=== PATIENT | male | born 1980 | race Caucasian/White ===

== ENCOUNTER 2017-11-01 06:14 | Emergency (ER) | payer MEDICAID ==
[~2017-11-01] VITALS: Ht 167.6 cm; Wt 45.4 kg
[2017-11-01 06:14] VITALS: BP_SYST 122
--- NOTE | 2017-11-01 06:14 | NUR ---
Placed in room 07 . Placed on director of cardiac rehabilitation, blood pressure machine and pulse oximeter. To gown for exam. Side rails up. Report given to RADHA Peña.
--- NOTE | 2017-11-01 06:17 | NUR ---
Patient brought in to ED via ALS. Patient AAO x 4, Frisian speaking but understands basic Slovenian. Per paramedics, patient had seizures witnessed by family, unknown duration, patient consumed alcohol last night per family. Patient post-ictal on arrival. Pupils PERRL. No other deficits noted. Patient came in with #20G L forearm IV on SL. No SOB or acute distress noted. Patient VSS. Seizure precautions in place. Will continue to monitor.
--- NOTE | 2017-11-01 06:19 | NUR ---
ER Dr. Limon at bedside examining patient.
[2017-11-01] MEDS ORDERED: NACL 0.9% 1,000 ML IV ONE (06:42)
--- NOTE | 2017-11-01 07:07 | NUR ---
Ilene melendez in ED - 11/01/17 at 0713 by [email or web address] Received report from IVF bolus infuisng.
--- NOTE | 2017-11-01 07:07 | NUR ---
Received report from Markie.
[2017-11-01 07:09] LABS: BASOPHILS % (AUTO) 0.6 % (0.0-2.0); EOSINOPHILS % (AUTO) 0.4 % (0.0-4.0); HEMATOCRIT 37.4 % (36-54); HEMOGLOBIN 12.2 g/dL (14.0-18.0); LYMPHOCYTES # (AUTO) 0.5 K/uL (1.0-5.5); LYMPHOCYTES % (AUTO) 14.9 % (20.5-51.5); MEAN CORPUSCULAR HEMOGLOBIN 28 pg (27-31); MEAN CORPUSCULAR HGB CONC 33 % (32-36); MEAN CORPUSCULAR VOLUME 86 fL (79.0-98.0); MONOCYTES # (AUTO) 0.6 K/uL (0.0-1.0); MONOCYTES % (AUTO) 16.8 % (1.7-9.3); NEUTROPHILS # (AUTO) 2.4 K/uL (1.8-7.7); NEUTROPHILS % (AUTO) 67.3 % (40.0-70.0); PLATELET COUNT (AUTO) 299 K/uL (130-430); RED BLOOD CELL COUNT(AUTO) 4.37 MIL/uL (4.2-6.2); RED CELL DISTRIBUTION WIDTH 14.7 % (9.0-15.0)
[2017-11-01 07:11] LABS: WHITE BLOOD COUNT (AUTO) 3.5 K/uL (4.8-10.8)
[2017-11-01 07:14] LABS: CALCIUM 9.4 mg/dL (8.4-11.0); CREATININE 0.68 mg/dL (0.55-1.30); POTASSIUM 3.7 mmol/L (3.5-5.1)
[2017-11-01 07:21] LABS: ALBUMIN 3.5 g/dL (3.4-4.8); TOTAL BILIRUBIN 0.7 mg/dL (0.0-1.0)
[2017-11-01 07:29] LABS: BARBITURATE, URINE NEGATIVE (NEG <=200); BENZODIAZEPINE, URINE NEGATIVE (NEG <=150); COCAINE, URINE NEGATIVE (NEG <=150); METHAMPHETAMINES SCREEN,URINE NEGATIVE (NEG <=500); URINE AMPHETAMINE NEGATIVE (NEG <=500); URINE METHADONE NEGATIVE (NEG <=200)
[2017-11-01 07:30] LABS: CANNABINOID, URINE POSITIVE (NEG <=50); OPIATE, URINE NEGATIVE (NEG <=100); PHENCYCLIDINE SCREEN,URINE NEGATIVE (NEG <=25); UR TRICYCLIC ANTIDEPRESSANTS NEGATIVE (NEG <=300); URINE OXYCODONE SCREEN NEGATIVE (NEG <=100); URINE PROPOXYPHENE SCREEN NEGATIVE (NEG <=300)
[2017-11-01 07:58] LABS: VALPROIC ACID < 3 ug/mL (50-100)
[2017-11-01 07:59] LABS: CARBAMAZEPINE (TEGRETOL) < 0 ug/mL (4-12); PHENYTOIN (DILANTIN) < 0.5 ug/mL (10.0-20.0)
--- NOTE | 2017-11-01 08:20 | NUR ---
Through utility bill collection clerk Isaac GARCIA, Pt states he had a seizure this morning. He has a history of seizures for 1 year. has been out of his medications for 1 month, gets them at [facility] and does not know what he takes. He has alcohol on his breath. IVF still infusing. No seizure activity.
--- NOTE | 2017-11-01 08:27 | NUR ---
ER MD back at bedside to speak with pt using accounts manager.
[2017-11-01 08:29] LABS: ALCOHOL, BLOOD < 3 mg/dL (<10)
[2017-11-01 08:34] LABS: ACETAMINOPHEN < 1 ug/mL (1-30)
[2017-11-01] MEDS ORDERED: FOLIC ACID 1 MG, THIAMINE HCL 100 MG, MAGNESIUM SULFATE 1 GM, MVI 10 ML in NACL 0.9% 1,... IV ONE (08:45)
[2017-11-01] MEDS ORDERED: PHENYTOIN SODIUM INJ 1,000 MG in NS 100 ML IV ONE (08:45)
[2017-11-01 12:23] VITALS: BP_SYST 136
--- NOTE | 2017-11-01 12:24 | NUR ---
Patient given written and verbal discharge instructions and verbalizes understanding. ER MD discussed with patient the results and treatment provided. Patient in stable condition. ID arm band removed. IV catheter removed intact and dressing applied, no active bleeding. Rx of DILANTIN Patient educated on pain management and to follow up with PMD. Pain Scale . Opportunity for questions provided and answered. Medication side effect fact sheet provided. iNSTRUCTIONS GIVEN IN [place]RA[place]. PT DISCAHRGED HOME WITH SISTER.
== END 2017-11-01 12:24 | disposition home or self-care (01) ==
LOC: SED 06:14
DX: G40.909 Epilepsy, unspecified, not intractable, without status epilepticus (principal); F17.200 Nicotine dependence, unspecified, uncomplicated; F10.129 Alcohol abuse with intoxication, unspecified; R03.0 Elevated blood-pressure reading, without diagnosis of hypertension; Y90.0 Blood alcohol level of less than 20 mg/100 ml
CPT/HCPCS: 36415; 80053; 80156; 80164; 80185; 80307; 83735; 85025; 96361; 96365; 96367; 99284; G0480; G0481; G0482; J1165; J3411; J3475; J3490; J7030